=== PATIENT | male | born 1970 ===

== ENCOUNTER 2017-09-22 12:36 | Emergency (ER) | payer OTHER ==
[2017-09-22 12:49] VITALS: BP 100/61; PULSE 90; RESP 20; TEMP 99.3; O2SAT 96
--- NOTE | 2017-09-22 13:09 | C.PDOC ---
History Of Present Illness 47 yr old male presents to the ER for evaluation of body aches, sore throat, dry cough gradually developed for the past 2 days. Pt reports, " pain with swallow today". Denies high fever, chills, severe headache, dizziness, drooling , dyspnea, chest pain, SOB, wheezing, abd. pain, nausea, vomiting, back pain, UTi sx. Ambulate to Ed for evaluation, not in any apparent distress. Time Seen by Provider: 09/22/17 13:06 Chief Complaint (Nursing): ENT Problem History Per: Patient History/Exam Limitations: None Onset/Duration Of Symptoms: Days (2) Current Symptoms Are (Timing): Still Present Past Medical History Reviewed: Historical Data, Nursing Documentation, Vital Signs Vital Signs: Last Vital Signs Temp 99.3 F 09/22/17 12:46 Pulse 90 09/22/17 12:46 Resp 20 09/22/17 12:46 BP 100/61 09/22/17 12:46 Pulse Ox 96 09/22/17 13:41 Family History: States: No Known Family Hx - Social History Hx Alcohol Use: No Hx Substance Use: No - Immunization History Hx Tetanus Toxoid Vaccination: No Hx Influenza Vaccination: No Hx Pneumococcal Vaccination: No Review Of Systems Except As Marked, All Systems Reviewed And Found Negative. Constitutional: Positive for: Other ((+) body aches). Negative for: Fever, Chills ENT: Positive for: Throat Pain (sore throat) Cardiovascular: Negative for: Chest Pain Respiratory: Positive for: Cough (dry). Negative for: Shortness of Breath Gastrointestinal: Negative for: Nausea, Vomiting Neurological: Negative for: Headache Physical Exam - Physical Exam Appears: Well, Non-toxic, No Acute Distress Skin: Warm, Dry, No Rash Head: Normacephalic Eye(s): bilateral: PERRL Ear(s): Bilateral: Normal Nose: No Flaring, Discharge (scant B/L) Oral Mucosa: Moist, No Drooling, No Trismus Tongue: Normal Appearing Lips: Normal Appearing Throat: Erythema (pharyngeal, moderate), Exudate (scant B/L with tonsilar enlargement), No Drooling Neck: Supple Chest: Symmetrical, No Tenderness Cardiovascular: Rhythm Regular, No Murmur Respiratory: No Decreased Breath Sounds, No Accessory Muscle Use, No Rales, No Rhonchi, No Stridor, No Wheezing Gastrointestinal/Abdominal: Soft, No Tenderness, No Distention, No Guarding Back: No CVA Tenderness Extremity: Normal ROM, No Pedal Edema, No Deformity Neurological/Psych: Oriented x3, Normal Speech ED Course And Treatment O2 Sat by Pulse Oximetry: 96 (RA) Pulse Ox Interpretation: Normal Progress Note: On re-evaluation, pt is awake, alert, not in any apparent distress. Pt was given PO challenge, tolerate well in ED. Afebrile, hemodynamicaly stable. PulsEOx 96% RA. No evidence of dehydration, mucosa moist, skin turgor- normal. ENT: No acute findings. Neck: Supple. Lungs: CTA B/L, BS equla B/L. Abd: benign. Neuorlogicaly intact. Pt has clinical findings c/w pharyngitis r/o viral illness. Pt request abx now. Explained, likely viral etiology of his illness. pt still request abx, was given on pt's discretaion. Pt advised. ref. to f/u with Ped in 1-2 days for re-eavl. return if any new changes Medical Decision Making Medical Decision Making: PLAN: * Motrin PO * Tamiflu PO * Tylenol PO Disposition Counseled Patient/Family Regarding: Diagnosis, Need For Followup, Rx Given - Disposition Referrals: Malachi Heart MD [Staff Provider] - Disposition: HOME/ ROUTINE Disposition Time: 13:17 Condition: STABLE Additional Instructions: ENCOURAGE FLUIDS TAKE MEDICATION PRESCRIBED FOLLOW UP WITH PMD IN 2-3 DAYS FOR RE-EVALUATION. RETURN TO ED IF ANY WORSENING OR NEW CHANGES. Prescriptions: Amoxicillin [Amoxil 500 mg Cap] 500 mg PO Q6 #28 cap Ibuprofen [Motrin Tab] 600 mg PO BID #20 tab Oseltamivir Phosphate [Tamiflu] 75 mg PO BID #10 capsule Instructions: Pharyngitis (ED), Influenza (ED) Forms: [employer] ([place]serratian) Print Language: HEBREW - Clinical Impression Clinical Impression: Influenza, Pharyngitis - PA / RISK INVESTIGATOR / Resident Statement MD/DO has reviewed & agrees with the documentation as recorded. - Scribe Statement The provider has reviewed the documentation as recorded by the Scribe Leida Howard All medical record entries made by the Scribe were at my direction and personally dictated by me. I have reviewed the chart and agree that the record accurately reflects my personal performance of the history, physical exam, medical decision making, and the department course for this patient. I have also personally directed, reviewed, and agree with the discharge instructions and disposition.
== END 2017-09-22 13:52 | disposition home or self-care (01) ==
LOC: C.ER 12:36
DX: J11.1 Influenza due to unidentified influenza virus with other respiratory manifestations (principal)

== ENCOUNTER 2017-09-25 06:37 | Emergency (ER) | payer OTHER ==
[2017-09-25 06:54] VITALS: BP 122/71; PULSE 77; RESP 18; TEMP 97.9; O2SAT 95
--- NOTE | 2017-09-25 07:14 | C.PDOC ---
History Of Present Illness 47 y/o male presents to the ER complaining of cough, sore throat, and chest pain which has been present for the past 5 days. Patient states that he had fever but he does it not have it now. He reports that he was seen 3 days ago in the ER. He was a given a prescription of Amoxicillin after he requested it. Patient is now requesting a shot of Penicillin. Patient does not have any other complaints. Time Seen by Provider: 09/25/17 07:03 Chief Complaint (Nursing): Flu-like Symptoms History Per: Patient History/Exam Limitations: no limitations Onset/Duration Of Symptoms: Days Current Symptoms Are (Timing): Still Present Sick Contacts (Context): None Associated Symptoms: Sore Throat, Cough Severity: Moderate Past Medical History Reviewed: Historical Data, Nursing Documentation, Vital Signs Vital Signs: Last Vital Signs Temp 97.9 F 09/25/17 06:49 Pulse 77 09/25/17 06:49 Resp 18 09/25/17 06:49 BP 122/71 09/25/17 06:49 Pulse Ox 95 09/25/17 07:25 - Medical History PMH: No Chronic Diseases Surgical History: No Surg Hx Family History: States: No Known Family Hx - Social History Hx Alcohol Use: No Hx Substance Use: No - Immunization History Hx Tetanus Toxoid Vaccination: No Hx Influenza Vaccination: No Hx Pneumococcal Vaccination: No Review Of Systems Except As Marked, All Systems Reviewed And Found Negative. Constitutional: Negative for: Fever, Chills ENT: Positive for: Throat Pain Cardiovascular: Positive for: Chest Pain Respiratory: Positive for: Cough Physical Exam - Physical Exam Appears: Non-toxic, No Acute Distress Skin: Normal Color, Warm Head: Atraumatic, Normacephalic Eye(s): bilateral: Normal Inspection Ear(s): Bilateral: Normal Nose: Normal Oral Mucosa: Moist Throat: Erythema (mild erythema), No Exudate Neck: Supple Lymphatic: Adenopathy (swollen cervical glands) Cardiovascular: Rhythm Regular Respiratory: Normal Breath Sounds, No Accessory Muscle Use, No Rales, No Rhonchi , No Wheezing Gastrointestinal/Abdominal: Normal Exam, Soft, No Tenderness Extremity: Normal ROM Neurological/Psych: Oriented x3, Normal Speech, Normal Motor, Normal Sensation ED Course And Treatment O2 Sat by Pulse Oximetry: 95 (RA) Pulse Ox Interpretation: Normal Medical Decision Making Medical Decision Making: Impression: Influenza-like Illness Plan: --Motrin --Tylenol Disposition Counseled Patient/Family Regarding: Diagnosis, Need For Followup, Rx Given - Disposition Referrals: [facility] at [facility] [Outside] Disposition: HOME/ ROUTINE Disposition Time: 07:12 Condition: STABLE Prescriptions: Ibuprofen [Motrin] 600 mg PO TID #15 tab Instructions: Influenza (ED) Forms: Gen Discharge Inst Japanese, [facility] (Japanese), Work Excuse - POA Present On Arrival: None - Clinical Impression Clinical Impression: Influenza-like illness - Scribe Statement The provider has reviewed the documentation as recorded by the Scribe Alfonso Grijalva Provider Attestation: All medical record entries made by the Scribe were at my direction and personally dictated by me. I have reviewed the chart and agree that the record accurately reflects my personal performance of the history, physical exam, medical decision making, and the department course for this patient. I have also personally directed, reviewed, and agree with the discharge instructions and disposition.
== END 2017-09-25 07:22 | disposition home or self-care (01) ==
LOC: C.ER 06:37
DX: J11.1 Influenza due to unidentified influenza virus with other respiratory manifestations (principal)

== ENCOUNTER 2017-12-05 12:16 | Emergency (ER) | payer OTHER ==
[2017-12-05 12:27] VITALS: BP 100/66; PULSE 60; RESP 18; TEMP 97.8; O2SAT 98
--- NOTE | 2017-12-05 13:45 | C.PDOC ---
History Of Present Illness 47 year old male presents to the ED c/o right knee pain that started on after he fell at work. Patient reports he was carrying an object when he fell. Patient reports he did not come earlier because he did not had time. Patient reports he has been taking OTC pain medication. Patient denies LOC, head injury, headache, weakness, numbness. Time Seen by Provider: 12/05/17 12:33 Chief Complaint (Nursing): Lower Extremity Problem/Injury History Per: Patient History/Exam Limitations: no limitations Onset/Duration Of Symptoms: Days Current Symptoms Are (Timing): Still Present Recent travel outside of the [place]: No Additional History Per: Patient - Knee Description Of Injury: Fell Alleviating Factor(s): OTC Pain Medication Past Medical History Reviewed: Historical Data, Nursing Documentation, Vital Signs Vital Signs: Last Vital Signs Temp 97.8 F 12/05/17 12:23 Pulse 60 12/05/17 12:23 Resp 18 12/05/17 12:23 BP 100/66 12/05/17 12:23 Pulse Ox 98 12/05/17 13:45 - Medical History PMH: No Chronic Diseases Surgical History: No Surg Hx Family History: States: Unknown Family Hx - Social History Hx Alcohol Use: No Hx Substance Use: No - Immunization History Hx Tetanus Toxoid Vaccination: No Hx Influenza Vaccination: No Hx Pneumococcal Vaccination: No Review Of Systems Except As Marked, All Systems Reviewed And Found Negative. Musculoskeletal: Positive for: Leg Pain Physical Exam - Physical Exam Appears: Non-toxic, No Acute Distress Skin: Normal Color, Warm, Dry Head: Atraumatic, Normacephalic Eye(s): bilateral: Normal Inspection Extremity: Normal ROM, Tenderness (posterior right knee), Capillary Refill (< 2 seconds), No Swelling Pulses: Left Dorsalis Pedis: Normal (PT pulses as well), Right Dorsalis Pedis: Normal (PT pulses as well) Neurological/Psych: Oriented x3, Normal Motor, Normal Sensation Gait: Steady ED Course And Treatment O2 Sat by Pulse Oximetry: 98 (On RA) Pulse Ox Interpretation: Normal - Other Rad Right knee X-Ray X-Ray: Interpreted by Me, Viewed By Me Interpretation: X-Ray shows no fracture or dislocation Medical Decision Making Medical Decision Making: Impression: leg pain Plan: * Right knee X-Ray * Motrin 600 mg PO * Mick bandage Patient will be D/C home with pain medications and information to follow up with clinic in 2 days for further evaluation. Disposition Counseled Patient/Family Regarding: Studies Performed, Diagnosis, Need For Followup, Rx Given - Disposition Referrals: [facility] at [facility] [Outside] Disposition: HOME/ ROUTINE Disposition Time: 13:44 Condition: STABLE Additional Instructions: follow up with your doctor or medical clinic in 2 days call to make an appointment continue your medications at home return to ER if symptoms worsens or progress Prescriptions: Naproxen [Naprosyn] 500 mg PO BID PRN #16 tab PRN Reason: Pain, Moderate (4-7) Instructions: Knee Sprain (DC) Forms: Gen Discharge Inst [employer], [facility] ([employer]) Print Language: LUXEMBOURGISH - Clinical Impression Clinical Impression: Knee sprain - Scribe Statement The provider has reviewed the documentation as recorded by the Scribe uW Shearer All medical record entries made by the Scribe were at my direction and personally dictated by me. I have reviewed the chart and agree that the record accurately reflects my personal performance of the history, physical exam, medical decision making, and the department course for this patient. I have also personally directed, reviewed, and agree with the discharge instructions and disposition.
--- NOTE | 2017-12-05 14:51 | RAD ---
PROCEDURE: Right Knee Radiographs. HISTORY: knee pain COMPARISON: None. FINDINGS: BONES: Normal. No fracture. JOINTS: Normal. No osteoarthritis. JOINT EFFUSION: None. OTHER FINDINGS: None. IMPRESSION: Normal radiographs of the right knee. Concordant results with the preliminary interpretation rendered by the emergency department physician procedure.
== END 2017-12-05 14:16 | disposition home or self-care (01) ==
LOC: C.ER 12:16
DX: S83.91XA Sprain of unspecified site of right knee, initial encounter (principal); W18.30XA Fall on same level, unspecified, initial encounter; Y92.89 Other specified places as the place of occurrence of the external cause; Y99.8 Other external cause status